=== PATIENT | male | born 2000 | race Caucasian/White ===

== ENCOUNTER 2021-04-22 22:45 | Emergency (ER) | payer BC, MEDICAID ==
[~2021-04-22] VITALS: Ht 175.3 cm; Wt 100.0 kg
[2021-04-23] MEDS ORDERED: CEPH500C2 MT (02:45)
[2021-04-23] MEDS ORDERED: ONDA4TAB5 MT (02:45)
[2021-04-23 03:11] VITALS: BP 113/78
== END 2021-04-23 03:16 | disposition home or self-care (01) ==
LOC: ER 22:45
DX: U07.1 COVID-19 (principal); J03.90 Acute tonsillitis, unspecified
CPT/HCPCS: 99282